=== PATIENT | male | born 1960 | race Caucasian/White ===

== ENCOUNTER 2017-08-29 18:41 | Inpatient (IN) | payer BC, OTHER ==
[~2017-08-29] VITALS: Ht 175.3 cm; Wt 118.0 kg
[2017-08-29 18:48] VITALS: BP 181/82; PULSE 106; RESP 16; TEMP 98.2; O2SAT 97
[2017-08-29] MEDS ORDERED: EMPA1TAB PO (22:32)
[2017-08-29] MEDS ORDERED: METF850T PO (22:32)
[2017-08-29 22:35] LABS: BILIRUBIN, URINE NEG (NEG); BLOOD, URINE LARGE (NEG); GLUCOSE,URINE 500 mg/dL (NEG); KETONE, URINE 80 OR GREATER mg/dL (NEG); NITRITE,URINE NEG (NEG); PH, URINE 5.5 (5.0-8.5); URINE LEUKOCYTE ESTERASE NEG (NEG)
[2017-08-29 22:45] LABS: SQUAMOUS EPITHELIAL CELL URINE 0-5 /hpf (0-5); URINE COLOR YELLOW (YELLW/STRAW); WBC, URINE 0-2 /hpf (0-5)
[2017-08-29] MEDS ORDERED: DIAZEPAM 5 MG TAB PO ONE (23:00)
[2017-08-29] MEDS ORDERED: SODIUM CHLOR 0.9% 1000 ML INJ 1,000 ML IV ONE (23:00)
[2017-08-29] MEDS ORDERED: KETOROLAC TROMETHAMINE 30 MG/ML (IVP) VIAL IV PUSH ONE (23:00)
--- NOTE | 2017-08-29 23:05 | PD ---
HPI Chief Complaint: diabetic Time Seen by Provider: 22:43 Travel History International Travel<30 days: No Contact w/Intl Traveler<30days: No Traveled to known affect area: No History of Present Illness HPI 56yo M with PMH of DM, peripheral neuropathy presents to the ED with c/o lower back pain for 2 days. Pain is bilateral across lower back. Pain is constant but waxes and wanes in intensity and nonradiating. Pain is slightly improved with ibuprofen. It is worst with movement and certain positions. Had 1 episode of vomiting today but denies being nauseous now. Also said his sugar has been high. Denies any fever, trauma, focal weakness, chest pain, sob, abdominal pain. Pt had some flu like symptoms recently such as throat pain, nasal congestion and frontal headache for about 1 week. Said symptoms have improved and is here today because of the back pain. Denies any history of nephrolithiasis, IVDA, cancer. Pt is on metformin and jardiance. He said he had insulin once but not insulin dependent. Pt took himself off his DM medication in Jul to try something new but felt bad so started again early Aug. He also started reading about sugar detox and was doing that. PFSH Past Medical History Diabetes: Yes Patient Takes Glucophage: No Tetanus Vaccination: Unknown Influenza Vaccination: No Social History Alcohol Use: No Tobacco Use: No Substance Use: No Allergies-Medications (Allergen,Severity, Reaction): Coded Allergies: No Known Allergies (Unverified , 08/29/17) Reported Meds & Prescriptions Reported Meds & Active Scripts Active Reported Jardiance (Empagliflozin) 10 Mg Tab 10 Mg PO DAILY Metformin (Metformin HCl) 850 Mg Tab 850 Mg PO BIDPC Review of Systems Except as stated in HPI: all other systems reviewed are Neg Physical Exam Narrative GENERAL: 56yo M in moderate distress. SKIN: Focused skin assessment warm/dry. HEAD: Atraumatic. Normocephalic. EYES: Pupils equal and round at 3mm bilaterally. EOMI. ENT: No nasal bleeding or discharge. Throat: Clear. Uvula midline. NECK: Trachea midline. No JVD. CARDIOVASCULAR: Regular rate and rhythm. No murmur appreciated. RESPIRATORY: No accessory muscle use. Clear to auscultation. Breath sounds equal bilaterally. GASTROINTESTINAL: Abdomen soft, non-tender, nondistended. No rebound tenderness or guarding. BACK: +TTP paraspinal L4-L5 left and right. MUSCULOSKELETAL: No obvious deformities. No clubbing. No cyanosis. No edema. NEUROLOGICAL: Awake and alert. No obvious cranial nerve deficits. Motor grossly within normal limits. Normal speech. PSYCHIATRIC: Appropriate mood and affect; insight and judgment normal. Data Data Last Documented VS Vital Signs Date Time Temp Pulse Resp B/P (MAP) Pulse Ox O2 Delivery O2 Flow Rate FiO2 08/29/17 18:48 98.2 106 16 181/82 (115) 97 Orders Orders Urinalysis - C+S If Indicated (08/29/17 22:25) Complete Blood Count With Diff (08/29/17 22:55) Basic Metabolic Panel (Bmp) (08/29/17 22:55) Lipase (08/29/17 22:55) Ketorolac Inj (Toradol Inj) (08/29/17 23:00) Diazepam (Valium) (08/29/17 23:00) Ct Abd/Pel W/O Iv Contrast (08/29/17 ) Sodium Chlor 0.9% 1000 Ml Inj (Ns 1000 M (08/29/17 23:00) Diet Npo (08/30/17 Breakfast) Sodium Chlor 0.9% 1000 Ml Inj (Ns 1000 M (08/30/17 00:03) Dext 5%-Nacl 0.9% 1000 Ml Inj (D5w-Ns 10 (08/30/17 00:03) Insulin Human Regular Inj (Novolin R Inj (08/30/17 00:15) Insulin Regular (Iv Infusion) (Novolin R (08/30/17 00:15) Potassium Chlor 20 Meq Premix (Kcl 20 Me (08/30/17 00:15) Potassium Chlor 20 Meq Premix (Kcl 20 Me (08/30/17 00:15) Potassium Chlor 20 Meq Premix (Kcl 20 Me (08/30/17 00:15) Potassium Chlor 20 Meq Premix (Kcl 20 Me (08/30/17 00:15) Blood Gas Venous (Vbg) (08/30/17 00:03) Sodium Bicarbonate 8.4% Inj (Sodium Bica (08/30/17 00:30) Admit Order (Ed Use Only) (08/30/17 00:34) Admit To Inpatient (08/30/17 ) Interior Plant Caretaker / Telemetry JOSEFINA.Q8H (08/30/17 00:22) ^ Insert Iv (08/30/17 00:22) ^ Teach Patient (08/30/17 00:22) Bedside Glucose JOSEFINA.Q1H (08/30/17 00:22) Dext 5%-Nacl 0.9% 1000 Ml Inj (D5w-Ns 10 (08/30/17 00:22) Insulin Regular (Iv Infusion) (Novolin R (08/30/17 00:30) Potassium Chlor 20 Meq Premix (Kcl 20 Me (08/30/17 00:30) Potassium Chlor 20 Meq Premix (Kcl 20 Me (08/30/17 00:30) Potassium Chlor 20 Meq Premix (Kcl 20 Me (08/30/17 00:30) Potassium Chlor 20 Meq Premix (Kcl 20 Me (08/30/17 00:30) Sodium Bicarbonate 8.4% Inj (Sodium Bica (08/30/17 00:30) Sodium Bicarbonate 8.4% Inj (Sodium Bica (08/30/17 00:30) Sodium Phosphate Inj (Sodium Phosphate I (08/30/17 00:30) Basic Metabolic Panel (Bmp) (08/30/17 05:22) Basic Metabolic Panel (Bmp) (08/30/17 11:22) Basic Metabolic Panel (Bmp) (08/30/17 17:22) Basic Metabolic Panel (Bmp) (08/30/17 23:22) Magnesium (Mg) (08/30/17 05:22) Magnesium (Mg) (08/30/17 11:22) Magnesium (Mg) (08/30/17 17:22) Magnesium (Mg) (08/30/17 23:22) Phosphorus (Po4) (08/30/17 05:22) Phosphorus (Po4) (08/30/17 11:22) Phosphorus (Po4) (08/30/17 17:22) Phosphorus (Po4) (08/30/17 23:22) Beta Hydroxybutyrate (Acetone) (08/30/17 11:22) Beta Hydroxybutyrate (Acetone) (08/30/17 23:22) ^ Initiate Protocol (08/30/17 00:22) Instruction (08/30/17 00:22) [facility] [place]08/30/17 00:30) Chlorhexidine 2% Cloth (Chlorhexidine 2% (08/30/17 04:00) Chlorhexidine 2% Cloth (Chlorhexidine 2% (08/30/17 00:30) Mrsa Pcr Surveillance (08/30/17 00:22) Inpatient Certification (08/30/17 ) Labs Laboratory Tests Test 08/29/17 22:29 08/29/17 23:20 08/30/17 00:10 Urine Color YELLOW Urine Turbidity CLEAR Urine pH 5.5 Urine Specific [place] 1.023 Urine Protein 100 mg/dL Urine Glucose (UA) 500 mg/dL Urine Ketones 80 OR GREATER mg/dL Urine Occult Blood LARGE Urine Nitrite NEG Urine Bilirubin NEG Urine Leukocyte Esterase NEG Urine RBC 10-14 /hpf Urine WBC 0-2 /hpf Urine Squamous Epithelial Cells 0-5 /hpf Microscopic Urinalysis Comment CULT NOT INDICATED White Blood Count 14.6 TH/MM3 Red Blood Count 6.90 MIL/MM3 Hemoglobin 17.8 GM/DL Hematocrit 55.1 % Mean Corpuscular Volume 79.8 FL Mean Corpuscular Hemoglobin 25.9 PG Mean Corpuscular Hemoglobin Concent 32.4 % Red Cell Distribution Width 13.7 % Platelet Count 213 TH/MM3 Mean Platelet Volume 8.7 FL Neutrophils (%) (Auto) 80.9 % Lymphocytes (%) (Auto) 11.2 % Monocytes (%) (Auto) 7.3 % Eosinophils (%) (Auto) 0.3 % Basophils (%) (Auto) 0.3 % Neutrophils # (Auto) 11.9 TH/MM3 Lymphocytes # (Auto) 1.6 TH/MM3 Monocytes # (Auto) 1.1 TH/MM3 Eosinophils # (Auto) 0.0 TH/MM3 Basophils # (Auto) 0.0 TH/MM3 CBC Comment DIFF FINAL Differential Comment Blood Urea Nitrogen 20 MG/DL Creatinine 1.50 MG/DL Random Glucose 230 MG/DL Calcium Level 8.7 MG/DL Sodium Level 131 MEQ/L Potassium Level 4.6 MEQ/L Chloride Level 100 MEQ/L Carbon Dioxide Level 5.1 MEQ/L Anion Gap 26 MEQ/L Estimat Glomerular Filtration Rate 48 ML/MIN Lipase 225 U/L Blood Gas Puncture Site LHAND Blood Gas Patient Temperature 98.6 Venous Blood pH 6.98 Venous Blood Partial Pressure CO2 31 mmHg Venous Blood Partial Pressure O2 40 mmHg Venous Blood HCO3 7 mmol/L Venous Blood Oxygen Saturation 65 % Venous Blood Oxygen Content 15.8 Vol % Venous Blood Base Excess -22.5 mmol/L Blood Gas Inspired Oxygen 21 % MDM Medical Decision Making Medical Screen Exam Complete: Yes Emergency Medical Condition: Yes Differential Diagnosis Nephrolithiasis vs. pyelonephritis vs. musculoskeletal pain vs. DKA vs. uncontrolled DM Narrative Course 56yo M with bilateral lower back pain. No red flags. UA showed large blood. + Ketone. +Glucose. WBC 0-2. Culture not indicated. Will do labs, CT a/p- and given toradol and valium. HR 106bpm, pt given NS IVF. Labs reviewed, leukocytosis. H/H elevated at 17.8/55.1. Glucose elevated at 230. CO2 low at 5.1. Anion gap is elevated at 26. Creatinine elevated at 1.50. Glucose elevated at 230. Pt has severe metabolic acidosis with pH of 6.98 and HCO3 of 7. Pt given sodium bicarb since pH is less than 7. Pt given another liter of NS IVF and then started on D5 IVF since glucose is under 250. Pt's insulin bolus was held and started on the insulin drip. K is 4.6 and KCl replacements have been ordered. CT a/p showed 2mm stone mid pole left kidney not causing obstruction. Pt has good mental status and saturating at 97% on RA. Pt has [facility] so discussed with Dr. Garcia and accepted to ICU under her service. Dr. Christine is also aware of pt since he will be in the ED most of the night since there is no ICU bed at this time. Critical Care Narrative Aggregate critical care time was 45 minutes. Time to perform other separately billable procedures was not included in the critical care time. My time did not include minutes spent treating any other patients simultaneously or on activities that did not directly contribute to the patient's treatment. The services I provided to this patient were to treat and/or prevent clinically significant deterioration that could result in: cardiovascular collapse or . I provided critical care services requiring my management, as noted below: Chart data review, documentation time, medication orders and management, vital sign assessments/reviewing monitor data, ordering and reviewing lab tests, ordering and interpreting/reviewing x-rays and diagnostic studies, care of the patient and discussion of the patient with the admitting physicians. Diagnosis Primary Impression: DKA (diabetic ketoacidoses) Qualified Codes: E11.10 - Type 2 diabetes mellitus with ketoacidosis without coma Admitting Information Admitting Physician Requests: Admit July Aguiar DO Aug 29, 2017 23:05
[2017-08-29 23:35] LABS: AUTOMATED NEUTROPHIL # 11.9 TH/MM3 (1.8-7.7); BASOPHIL % 0.3 % (0.0-2.0); EOSINOPHIL % 0.3 % (0.0-4.0); HEMATOCRIT 55.1 % (39.0-51.0); HEMOGLOBIN 17.8 GM/DL (13.0-17.0); LYMPH % 11.2 % (9.0-44.0); LYMPHOCYTE # 1.6 TH/MM3 (1.0-4.8); MEAN CELL VOLUME 79.8 FL (80.0-100.0); MEAN CORPUSCULAR HEMOGLOBIN 25.9 PG (27.0-34.0); MEAN CORPUSCULAR HGB CONC 32.4 % (32.0-36.0); MEAN PLATELET VOLUME 8.7 FL (7.0-11.0); MONO % 7.3 % (0.0-8.0); MONOCYTE # 1.1 TH/MM3 (0-0.9); NEUT % 80.9 % (16.0-70.0); PLATELET COUNT 213 TH/MM3 (150-450); RED CELL DISTRIBUTION WIDTH 13.7 % (11.6-17.2); WHITE BLOOD COUNT 14.6 TH/MM3 (4.0-11.0)
[2017-08-29 23:46] LABS: BICARBONATE 5.1 MEQ/L (21.0-32.0); CALCIUM 8.7 MG/DL (8.5-10.1)
[2017-08-29 23:49] LABS: CREATININE 1.5 MG/DL (0.60-1.30)
[2017-08-30] VITALS (14 sets, daily range): BP systolic 120–151; BP diastolic 64–74; PULSE 77–102; RESP 16–18; O2SAT 95–100
[2017-08-30] MEDS: SODIUM CHLOR 0.9% 1000 ML INJ 1,000 ML IV SCH ×2 (00:03→04:03)
[2017-08-30] MEDS ORDERED: INSULIN REGULAR (IV INFUSION) 100 UNITS in SODIUM CHLORIDE 0.9% INJ 99 ML IV PRN (00:15)
[2017-08-30] MEDS ORDERED: POTASSIUM CHLOR 20 MEQ PREMIX 100 ML IV PRN ×8 (00:15→00:30)
[2017-08-30] MEDS ORDERED: INSULIN HUMAN REGULAR 1,000 UNITS/10 ML VIAL IV PUSH ONE (00:15)
--- NOTE | 2017-08-30 00:17 | RADRPT ---
EXAM DATE/TIME: 08/29/2017 23:07 [place] COMPARISON: No previous studies available for comparison. INDICATIONS : Nausea, vomiting , back pain for 2 days ORAL CONTRAST: No oral contrast ingested. RADIATION DOSE: 27.21 CTDIvol (mGy) MEDICAL HISTORY : Diabetes mellitus type 2. SURGICAL HISTORY : None. ENCOUNTER: Initial ACUITY: 2 days PAIN SCALE: 8/10 LOCATION: Bilateral posterior abdomen TECHNIQUE: Volumetric scanning of the abdomen and pelvis was performed. Using automated exposure control and ad justment of the mA and/or kV according to patient size, radiation dose was kept as low as reasonably achievable to obtain optimal diagnostic quality images. DICOM format image data is available electro nically for review and comparison. FINDINGS: LOWER LUNGS: The visualized lower lungs are clear. LIVER: Homogeneous density without lesion. There is no dilation of the biliary tree. No calcified gallston es. There is fatty infiltration throughout the liver. SPLEEN: Normal size without lesion. PANCREAS: Within normal limits. KIDNEYS: Normal in size and shape. There is no mass or hydronephrosis. Tiny 2 mm stone mid pole left kidney n ot causing obstruction. ADRENAL GLANDS: Within normal limits. VASCULAR: There is no aortic aneurysm. BOWEL/MESENTERY: The stomach, small bowel, and colon demonstrate no acute abnormality. There is no free intraperitone al air or fluid. The appendix is unremarkable. No inflammatory changes. ABDOMINAL WALL: Within normal limits. RETROPERITONEUM: There is no lymphadenopathy. BLADDER: No wall thickening or mass. REPRODUCTIVE: Within normal limits. INGUINAL: There is no lymphadenopathy or hernia. MUSCULOSKELETAL: Within normal limits for patient age. There are degenerative changes of the lower lumbar spine. CONCLUSION: 1. 2 mm stone mid pole left kidney not causing obstruction. 2. Diffuse fatty infiltration of the liver. Marvin Ryan MD on August 30, 2017 at 0:12 Board Certified Radiologist. This report was verified electronically.
[2017-08-30] MEDS ORDERED: MISCELLANEOUS NURSING INFORMATION XX SCH (00:30)
[2017-08-30] MEDS: INSULIN REGULAR (IV INFUSION) 100 UNITS in SODIUM CHLORIDE 0.9% INJ 99 ML IV PRN ×2 (00:30→17:18)
[2017-08-30] MEDS ORDERED: CHLORHEXIDINE GLUCONATE 2 % 1 PACK (2 CLOTHS) TOP PRN (00:30)
[2017-08-30] MEDS ORDERED: SODIUM PHOSPHATE INJ 15 MMOL in SODIUM CHLORIDE 0.9% INJ 100 ML IV PRN (00:30)
[2017-08-30] MEDS ORDERED: SODIUM BICARBONATE 8.4% SOLN 50 MEQ/50 ML VIAL IV PUSH PRN ×3 (00:30)
--- NOTE | 2017-08-30 00:38 | PD ---
Data Data Last Documented VS Vital Signs Date Time Temp Pulse Resp B/P (MAP) Pulse Ox O2 Delivery O2 Flow Rate FiO2 08/29/17 18:48 98.2 106 16 181/82 (115) 97 Orders Orders Urinalysis - C+S If Indicated (08/29/17 22:25) Complete Blood Count With Diff (08/29/17 22:55) Basic Metabolic Panel (Bmp) (08/29/17 22:55) Lipase (08/29/17 22:55) Ketorolac Inj (Toradol Inj) (08/29/17 23:00) Diazepam (Valium) (08/29/17 23:00) Ct Abd/Pel W/O Iv Contrast (08/29/17 ) Sodium Chlor 0.9% 1000 Ml Inj (Ns 1000 M (08/29/17 23:00) Diet Npo (08/30/17 Breakfast) Sodium Chlor 0.9% 1000 Ml Inj (Ns 1000 M (08/30/17 00:03) Dext 5%-Nacl 0.9% 1000 Ml Inj (D5w-Ns 10 (08/30/17 00:03) Insulin Human Regular Inj (Novolin R Inj (08/30/17 00:15) Insulin Regular (Iv Infusion) (Novolin R (08/30/17 00:15) Potassium Chlor 20 Meq Premix (Kcl 20 Me (08/30/17 00:15) Potassium Chlor 20 Meq Premix (Kcl 20 Me (08/30/17 00:15) Potassium Chlor 20 Meq Premix (Kcl 20 Me (08/30/17 00:15) Potassium Chlor 20 Meq Premix (Kcl 20 Me (08/30/17 00:15) Blood Gas Venous (Vbg) (08/30/17 00:03) Sodium Bicarbonate 8.4% Inj (Sodium Bica (08/30/17 00:30) Admit Order (Ed Use Only) (08/30/17 00:34) Admit To Inpatient (08/30/17 ) Glass Decorator / Telemetry JOSEFINA.Q8H (08/30/17 00:22) ^ Insert Iv (08/30/17 00:22) ^ Teach Patient (08/30/17 00:22) Bedside Glucose JOSEFINA.Q1H (08/30/17 00:22) Dext 5%-Nacl 0.9% 1000 Ml Inj (D5w-Ns 10 (08/30/17 00:22) Insulin Regular (Iv Infusion) (Novolin R (08/30/17 00:30) Potassium Chlor 20 Meq Premix (Kcl 20 Me (08/30/17 00:30) Potassium Chlor 20 Meq Premix (Kcl 20 Me (08/30/17 00:30) Potassium Chlor 20 Meq Premix (Kcl 20 Me (08/30/17 00:30) Potassium Chlor 20 Meq Premix (Kcl 20 Me (08/30/17 00:30) Sodium Bicarbonate 8.4% Inj (Sodium Bica (08/30/17 00:30) Sodium Bicarbonate 8.4% Inj (Sodium Bica (08/30/17 00:30) Sodium Phosphate Inj (Sodium Phosphate I (08/30/17 00:30) Basic Metabolic Panel (Bmp) (08/30/17 05:22) Basic Metabolic Panel (Bmp) (08/30/17 11:22) Basic Metabolic Panel (Bmp) (08/30/17 17:22) Basic Metabolic Panel (Bmp) (08/30/17 23:22) Magnesium (Mg) (08/30/17 05:22) Magnesium (Mg) (08/30/17 11:22) Magnesium (Mg) (08/30/17 17:22) Magnesium (Mg) (08/30/17 23:22) Phosphorus (Po4) (08/30/17 05:22) Phosphorus (Po4) (08/30/17 11:22) Phosphorus (Po4) (08/30/17 17:22) Phosphorus (Po4) (08/30/17 23:22) Beta Hydroxybutyrate (Acetone) (08/30/17 11:22) Beta Hydroxybutyrate (Acetone) (08/30/17 23:22) ^ Initiate Protocol (08/30/17 00:22) Instruction (08/30/17 00:22) [facility] [place] Nursing [place] (08/30/17 00:30) Chlorhexidine 2% Cloth (Chlorhexidine 2% (08/30/17 04:00) Chlorhexidine 2% Cloth (Chlorhexidine 2% (08/30/17 00:30) Mrsa Pcr Surveillance (08/30/17 00:22) Inpatient Certification (08/30/17 ) Labs Laboratory Tests Test 08/29/17 22:29 08/29/17 23:20 08/30/17 00:10 Urine Color YELLOW Urine Turbidity CLEAR Urine pH 5.5 Urine Specific [place] 1.023 Urine Protein 100 mg/dL Urine Glucose (UA) 500 mg/dL Urine Ketones 80 OR GREATER mg/dL Urine Occult Blood LARGE Urine Nitrite NEG Urine Bilirubin NEG Urine Leukocyte Esterase NEG Urine RBC 10-14 /hpf Urine WBC 0-2 /hpf Urine Squamous Epithelial Cells 0-5 /hpf Microscopic Urinalysis Comment CULT NOT INDICATED White Blood Count 14.6 TH/MM3 Red Blood Count 6.90 MIL/MM3 Hemoglobin 17.8 GM/DL Hematocrit 55.1 % Mean Corpuscular Volume 79.8 FL Mean Corpuscular Hemoglobin 25.9 PG Mean Corpuscular Hemoglobin Concent 32.4 % Red Cell Distribution Width 13.7 % Platelet Count 213 TH/MM3 Mean Platelet Volume 8.7 FL Neutrophils (%) (Auto) 80.9 % Lymphocytes (%) (Auto) 11.2 % Monocytes (%) (Auto) 7.3 % Eosinophils (%) (Auto) 0.3 % Basophils (%) (Auto) 0.3 % Neutrophils # (Auto) 11.9 TH/MM3 Lymphocytes # (Auto) 1.6 TH/MM3 Monocytes # (Auto) 1.1 TH/MM3 Eosinophils # (Auto) 0.0 TH/MM3 Basophils # (Auto) 0.0 TH/MM3 CBC Comment DIFF FINAL Differential Comment Blood Urea Nitrogen 20 MG/DL Creatinine 1.50 MG/DL Random Glucose 230 MG/DL Calcium Level 8.7 MG/DL Sodium Level 131 MEQ/L Potassium Level 4.6 MEQ/L Chloride Level 100 MEQ/L Carbon Dioxide Level 5.1 MEQ/L Anion Gap 26 MEQ/L Estimat Glomerular Filtration Rate 48 ML/MIN Lipase 225 U/L Blood Gas Puncture Site LHAND Blood Gas Patient Temperature 98.6 Venous Blood pH 6.98 Venous Blood Partial Pressure CO2 31 mmHg Venous Blood Partial Pressure O2 40 mmHg Venous Blood HCO3 7 mmol/L Venous Blood Oxygen Saturation 65 % Venous Blood Oxygen Content 15.8 Vol % Venous Blood Base Excess -22.5 mmol/L Blood Gas Inspired Oxygen 21 % [facility] Supervised Visit with DESTINY: No Narrative Course patient has already been dispositioned by Dr. July Aguiar to the intensive care unit on Dr. Ventura, I will continue to look after him while he is in the emergency Department as we are in a holding pattern. Patient had requested additional pain medication for his low back pain, reviewed his CAT scan and there is no acute pathology signify what his back pain is emanating from. He is in severe DKA with a pH of 6.98. His blood sugar is also to 30, starting on a second liter bolus, D5 drip, insulin infusion , holding insulin bolus given relative hypoglycemia. He is starting on the electrolyte replacement protocol. Bicarbonate bolus is also been ordered by Dr. Aguiar. Patient VBG has improved slightly do a pH greater than 7.0. Morphine administered and the patient is feeling better. Over the next few hours the patient's vital signs slowly normalizing, appears comfortable. His blood glucose has been somewhat low in the insulin drip was ultimately cut in half to 5.5 units per hour. Hemodynamically stable throughout the end of my shift at 0700. A repeat chemistry was drawn at 05 30 which shows some improvement in the anion gap. Continuing on half insulin dose regimen. Deferring to protocol at this point. Calcium replacement ordered. Diagnosis Primary Impression: DKA (diabetic ketoacidoses) Qualified Codes: E11.10 - Type 2 diabetes mellitus with ketoacidosis without coma Admitting Information Admitting Physician Requests: Admit Condition: Critical Andrew Christine MD Aug 30, 2017 00:38
[2017-08-30] MEDS ORDERED: MORPHINE SULFATE 2 MG/ML INJ IV PUSH ONE (00:45)
[2017-08-30] MEDS: DEXT 5%-NACL 0.9% 1000 ML INJ 1,000 ML IV SCH ×4 (01:27→17:18)
[2017-08-30 02:52] LABS: BICARBONATE 7.4 MEQ/L (21.0-32.0); CALCIUM 7.8 MG/DL (8.5-10.1); CREATININE 1.4 MG/DL (0.60-1.30); MAGNESIUM 2.5 MG/DL (1.5-2.5)
[2017-08-30] MEDS: CHLORHEXIDINE GLUCONATE 2 % 1 PACK (2 CLOTHS) TOP SCH (04:00)
[2017-08-30 06:09] LABS: BICARBONATE 10.4 MEQ/L (21.0-32.0); CALCIUM 7.4 MG/DL (8.5-10.1); CREATININE 1.3 MG/DL (0.60-1.30); MAGNESIUM 2.4 MG/DL (1.5-2.5); PHOSPHORUS 2.5 MG/DL (2.5-4.9)
[2017-08-30] MEDS ORDERED: CALCIUM GLUCONATE INJ 2 GM in DEXTROSE 5% IN WATER 100ML INJ 100 ML IV ONE ×2 (07:00)
[2017-08-30 07:13] LABS: TOTAL PROTEIN 7.2 GM/DL (6.4-8.2)
[2017-08-30 07:26] LABS: CALCIUM-PROTEIN CORRECTED 7.4 MG/DL (8.5-10.1)
[2017-08-30] MEDS ORDERED: ONDANSETRON HCL 4 MG/2 ML VIAL ONE (09:59)
[2017-08-30] MEDS ORDERED: MORPHINE SULFATE 2 MG/ML INJ IV PUSH PRN (10:30)
[2017-08-30] MEDS ORDERED: ONDANSETRON HCL 4 MG/2 ML VIAL IV PUSH PRN (10:30)
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
[2017-08-30 12:28] LABS: BICARBONATE 15.1 MEQ/L (21.0-32.0); MAGNESIUM 2.3 MG/DL (1.5-2.5)
[2017-08-30 12:32] LABS: CREATININE 1.2 MG/DL (0.60-1.30)
[2017-08-30 12:54] LABS: PHOSPHORUS 1.3 MG/DL (2.5-4.9)
[2017-08-30] MEDS: PANTOPRAZOLE SODIUM 40 MG VIAL IV PUSH SCH (13:11)
[2017-08-30 17:24] LABS: CALCIUM 7.7 MG/DL (8.5-10.1)
[2017-08-30 17:25] LABS: MAGNESIUM 2.3 MG/DL (1.5-2.5)
[2017-08-30 17:28] LABS: CREATININE 1.2 MG/DL (0.60-1.30); PHOSPHORUS 1.3 MG/DL (2.5-4.9)
[2017-08-30] MEDS ORDERED: GLUCAGON 1 MG/ML VIAL OTHER PRN (18:30)
[2017-08-30] MEDS ORDERED: DC previous DKA orders (HMC 1917) ONE (18:30)
[2017-08-30] MEDS ORDERED: DC Insulin drip 2 hrs post basal insulin dose ONE (18:30)
[2017-08-30] MEDS ORDERED: DEXTROSE 50% IN WATER 50 ML VIAL(D50) IV PUSH PRN (18:30)
[2017-08-30] MEDS: INSULIN DETEMIR 100 UNITS/ML VIAL SQ SCH (19:49)
[2017-08-30] MEDS: SODIUM CHLOR 0.45% 1000 ML INJ 1,000 ML IV SCH (19:54)
[2017-08-30 22:55] LABS: CALCIUM 7.7 MG/DL (8.5-10.1)
[2017-08-30 22:56] LABS: BICARBONATE 20.3 MEQ/L (21.0-32.0)
[2017-08-30 22:59] LABS: CREATININE 1.1 MG/DL (0.60-1.30)
[2017-08-30] MEDS: INSULIN ASPART SUPPLEMENTAL SCALE SQ SCH (23:28)
[2017-08-31] MEDS ORDERED: MORPHINE SULFATE 4 MG/ML INJ IV ONE (02:30)
[2017-08-31] MEDS: CHLORHEXIDINE GLUCONATE 2 % 1 PACK (2 CLOTHS) TOP SCH (04:32)
[2017-08-31] MEDS: SODIUM CHLOR 0.45% 1000 ML INJ 1,000 ML IV SCH (07:10)
[2017-08-31 08:00] VITALS: BP 143/92; PULSE 66; RESP 18; TEMP 98.2; O2SAT 100
[2017-08-31] MEDS: INSULIN ASPART SUPPLEMENTAL SCALE SQ SCH ×2 (08:00→12:56)
[2017-08-31] MEDS: INSULIN DETEMIR 100 UNITS/ML VIAL SQ SCH (08:40)
[2017-08-31] MEDS ORDERED: LOSARTAN 50 MG TAB PO SCH (09:00)
[2017-08-31] MEDS ORDERED: metFORMIN HCL 850 MG TAB PO SCH (09:00)
[2017-08-31 09:09] LABS: AUTOMATED NEUTROPHIL # 2.8 TH/MM3 (1.8-7.7); BASOPHIL % 0.4 % (0.0-2.0); EOSINOPHIL # 0.1 TH/MM3 (0-0.4); EOSINOPHIL % 1.4 % (0.0-4.0); HEMOGLOBIN 14.4 GM/DL (13.0-17.0); LYMPH % 22.6 % (9.0-44.0); MEAN CORPUSCULAR HGB CONC 32.1 % (32.0-36.0); MEAN PLATELET VOLUME 8.6 FL (7.0-11.0); MONO % 8.2 % (0.0-8.0); MONOCYTE # 0.4 TH/MM3 (0-0.9); NEUT % 67.4 % (16.0-70.0); PLATELET COUNT 109 TH/MM3 (150-450); RED BLOOD COUNT 5.55 MIL/MM3 (4.50-5.90); RED CELL DISTRIBUTION WIDTH 14.2 % (11.6-17.2); WHITE BLOOD COUNT 4.3 TH/MM3 (4.0-11.0)
[2017-08-31 09:15] LABS: BICARBONATE 20.8 MEQ/L (21.0-32.0)
[2017-08-31 09:19] LABS: CREATININE 0.99 MG/DL (0.60-1.30)
[2017-08-31] MEDS ORDERED: traMADol HCL 50 MG TAB PO PRN (09:30)
[2017-08-31] MEDS: PANTOPRAZOLE SODIUM 40 MG VIAL IV PUSH SCH (09:47)
[2017-08-31] MEDS ORDERED: POTASSIUM CHLORIDE 20 MEQ CONTROLLED RELEASE TAB PO ONE (10:00)
[2017-08-31 12:00] VITALS: BP 140/85; PULSE 76; RESP 18; TEMP 98; O2SAT 100
[2017-08-31] MEDS ORDERED: COZA50TA PO (12:30)
[2017-08-31] MEDS ORDERED: TRAM50 PO (12:30)
[2017-08-31] MEDS ORDERED: LEVEMIR SQ (12:30)
--- NOTE | 2017-08-31 12:43 | HHI.PR ---
Subjective Remarks He feels much better and his acidosis has resolved and blood sugars better. He still has a little low back pain but is better than it was on admission. Objective Vitals Vital Signs Date Time Temp Pulse Resp B/P (MAP) Pulse Ox O2 Delivery O2 Flow Rate FiO2 08/31/17 08:00 98.2 66 18 143/92 (109) 100 08/30/17 23:47 08/30/17 21:11 78 16 125/64 (84) 99 Room Air 08/30/17 19:58 98 16 145/68 (93) 97 Room Air 08/30/17 17:23 77 16 132/71 (91) 98 Room Air 08/30/17 15:09 81 16 135/65 (88) 95 Room Air 08/30/17 13:03 81 18 138/71 (93) 97 Room Air 08/31/17 08/31/17 09/01/17 15:00 23:00 07:00 Intake Total 527 ml Balance 527 ml IV Total 527 ml Result Diagram: 08/31/17 0825 08/31/17 0825 Other Results Laboratory Tests Test 08/29/17 22:29 08/29/17 23:20 08/30/17 00:10 08/30/17 01:38 Urine Color YELLOW Urine Turbidity CLEAR Urine pH 5.5 Urine Specific [place] 1.023 Urine Protein 100 mg/dL Urine Glucose (UA) 500 mg/dL Urine Ketones 80 OR GREATER mg/dL Urine Occult Blood LARGE Urine Nitrite NEG Urine Bilirubin NEG Urine Leukocyte Esterase NEG Urine RBC 10-14 /hpf Urine WBC 0-2 /hpf Urine Squamous Epithelial Cells 0-5 /hpf Microscopic Urinalysis Comment CULT NOT INDICATED White Blood Count 14.6 TH/MM3 Red Blood Count 6.90 MIL/MM3 Hemoglobin 17.8 GM/DL Hematocrit 55.1 % Mean Corpuscular Volume 79.8 FL Mean Corpuscular Hemoglobin 25.9 PG Mean Corpuscular Hemoglobin Concent 32.4 % Red Cell Distribution Width 13.7 % Platelet Count 213 TH/MM3 Mean Platelet Volume 8.7 FL Neutrophils (%) (Auto) 80.9 % Lymphocytes (%) (Auto) 11.2 % Monocytes (%) (Auto) 7.3 % Eosinophils (%) (Auto) 0.3 % Basophils (%) (Auto) 0.3 % Neutrophils # (Auto) 11.9 TH/MM3 Lymphocytes # (Auto) 1.6 TH/MM3 Monocytes # (Auto) 1.1 TH/MM3 Eosinophils # (Auto) 0.0 TH/MM3 Basophils # (Auto) 0.0 TH/MM3 CBC Comment DIFF FINAL Differential Comment Blood Urea Nitrogen 20 MG/DL Creatinine 1.50 MG/DL Random Glucose 230 MG/DL Calcium Level 8.7 MG/DL Sodium Level 131 MEQ/L Potassium Level 4.6 MEQ/L Chloride Level 100 MEQ/L Carbon Dioxide Level 5.1 MEQ/L Anion Gap 26 MEQ/L Estimat Glomerular Filtration Rate 48 ML/MIN Lipase 225 U/L Blood Gas Puncture Site LHAND R HAND Blood Gas Patient Temperature 98.6 98.6 Venous Blood pH 6.98 7.03 Venous Blood Partial Pressure CO2 31 mmHg 34 mmHg Venous Blood Partial Pressure O2 40 mmHg 31 mmHg Venous Blood HCO3 7 mmol/L 9 mmol/L Venous Blood Oxygen Saturation 65 % 53 % Venous Blood Oxygen Content 15.8 Vol % 12.6 Vol % Venous Blood Base Excess -22.5 mmol/L -20.2 mmol/L Blood Gas Inspired Oxygen 21 % 21 % Test 08/30/17 02:00 08/30/17 05:30 08/30/17 12:00 08/30/17 17:05 Blood Urea Nitrogen 20 MG/DL 18 MG/DL 13 MG/DL 10 MG/DL Creatinine 1.40 MG/DL 1.30 MG/DL 1.20 MG/DL 1.20 MG/DL Random Glucose 208 MG/DL 162 MG/DL 194 MG/DL 186 MG/DL Calcium Level 7.8 MG/DL 7.4 MG/DL 8.0 MG/DL 7.7 MG/DL Phosphorus Level 4.0 MG/DL 2.5 MG/DL 1.3 MG/DL 1.3 MG/DL Magnesium Level 2.5 MG/DL 2.4 MG/DL 2.3 MG/DL 2.3 MG/DL Sodium Level 135 MEQ/L 139 MEQ/L 139 MEQ/L 140 MEQ/L Potassium Level 4.6 MEQ/L 4.5 MEQ/L 4.2 MEQ/L 3.7 MEQ/L Chloride Level 105 MEQ/L 110 MEQ/L 111 MEQ/L 112 MEQ/L Carbon Dioxide Level 7.4 MEQ/L 10.4 MEQ/L 15.1 MEQ/L 19.0 MEQ/L Anion Gap 23 MEQ/L 19 MEQ/L 13 MEQ/L 9 MEQ/L Estimat Glomerular Filtration Rate 52 ML/MIN 57 ML/MIN 62 ML/MIN 62 ML/MIN Total Protein 7.2 GM/DL Protein Corrected Calcium 7.4 MG/DL B-Hydroxybutyrate 4.12 MMOL/L 3.04 MMOL/L Test 08/30/17 17:18 08/30/17 22:42 08/31/17 08:25 Nasal Screen MRSA (PCR) MRSA NOT DETECTED Blood Urea Nitrogen 10 MG/DL 10 MG/DL Creatinine 1.10 MG/DL 0.99 MG/DL Random Glucose 174 MG/DL 150 MG/DL Calcium Level 7.7 MG/DL 8.0 MG/DL Sodium Level 139 MEQ/L 139 MEQ/L Potassium Level 3.5 MEQ/L 3.4 MEQ/L Chloride Level 110 MEQ/L 108 MEQ/L Carbon Dioxide Level 20.3 MEQ/L 20.8 MEQ/L Anion Gap 9 MEQ/L 10 MEQ/L Estimat Glomerular Filtration Rate 69 ML/MIN 78 ML/MIN B-Hydroxybutyrate 2.09 MMOL/L White Blood Count 4.3 TH/MM3 Red Blood Count 5.55 MIL/MM3 Hemoglobin 14.4 GM/DL Hematocrit 45.0 % Mean Corpuscular Volume 81.0 FL Mean Corpuscular Hemoglobin 26.0 PG Mean Corpuscular Hemoglobin Concent 32.1 % Red Cell Distribution Width 14.2 % Platelet Count 109 TH/MM3 Mean Platelet Volume 8.6 FL Neutrophils (%) (Auto) 67.4 % Lymphocytes (%) (Auto) 22.6 % Monocytes (%) (Auto) 8.2 % Eosinophils (%) (Auto) 1.4 % Basophils (%) (Auto) 0.4 % Neutrophils # (Auto) 2.8 TH/MM3 Lymphocytes # (Auto) 1.0 TH/MM3 Monocytes # (Auto) 0.4 TH/MM3 Eosinophils # (Auto) 0.1 TH/MM3 Basophils # (Auto) 0.0 TH/MM3 CBC Comment DIFF FINAL Differential Comment Imaging Last Impressions Abdomen/Pelvis CT 08/29/17 0000 Signed Impressions: Service Date/Time: August 23:07 - CONCLUSION: 1. 2 mm stone mid pole left kidney not causing obstruction. 2. Diffuse fatty infiltration of the liver. Marvin Ryan MD Objective Remarks Exam: Obese male in no distress. HEENT: Pupils equal, no scleral icterus, mouth negative Neck: No JVD Heart: RRR with no murmurs Lungs: Clear Abdomen: Soft, nontender Extremities: No edema Neuro: Alert,, no focal neuro deficits A/P Assessment and Plan Assessment: 1) Diabetic ketoacidosis--resolved 2) Type II diabetes that was poorly controlled 3) Hypertension 4) Hyperlipidemia 5) Obstructive sleep apnea 6) Nonobstructing stone right kidney on CT scan of the abdomen 7) Fatty liver on CT scan of the abdomen 8) Obesity Plan: He was started on Levemir Insulin 50 units [address] night [address] Dr Ventura and his blood sugar has come down into the 100's. Was 181 at noon. I resumed his Glucophage 850mg twice a day earlier today. He had been on Benicar in the past for hypertension but had been off it so I started him on Losartan 50mg daily this morning. He will be discharged this afternoon. He already has an appointment with Dr Iliana Howell this week so he will followup with her. He will monitor his blood sugars at home at least twice a day until he sees Dr Howell. He will follow a diabetic diet. I ordered some Tramadol for his back pain if needed. His back pain was better when I saw him this morning. Shakir Verde MD Aug 31, 2017 12:43
== END 2017-08-31 14:23 | disposition home or self-care (01) | DRG 639 ==
LOC: PHED 18:41 → PHEDA 08-30 00:35 → PHEDH 08-30 05:44 → PH3A 08-30 23:38
PROVIDERS: ADMIT Legal Medicine; ATTEND Legal Medicine
DX: E11.10 Type 2 diabetes mellitus with ketoacidosis without coma (principal); K76.0 Fatty (change of) liver, not elsewhere classified; I10 Essential (primary) hypertension; Z79.84 Long term (current) use of oral hypoglycemic drugs; E11.42 Type 2 diabetes mellitus with diabetic polyneuropathy; E78.1 Pure hyperglyceridemia; G47.33 Obstructive sleep apnea (adult) (pediatric); E78.5 Hyperlipidemia, unspecified; D72.829 Elevated white blood cell count, unspecified; N20.0 Calculus of kidney; E66.9 Obesity, unspecified
CPT/HCPCS: 74176; 80048; 81001; 82010; 82805; 82948; 83690; 83735; 84100; 84155; 85025; 87641; 96361; 96374; 96375; C9113; J0610; J1815; J1817; J1885; J2270; J2405; J3480; J7030; J7042